=== PATIENT | male | born 1940 | race Caucasian/White ===

== ENCOUNTER 2017-09-07 07:21 | Observation (INO) ==
[2017-09-07] MEDS ORDERED: CeFAZolin Syr 2,000MG/20 ML 2,000 MG/20 ML SYRINGE IVPB ONE (07:39)
[2017-09-07] MEDS ORDERED: Lidocaine -MPF 1% 2 ML VIAL ID ONE (07:39)
[2017-09-07] MEDS: Ringers Solution, Lactated 1,000 ML IVC SCH ×2 (07:46→10:21)
--- NOTE | 2017-09-07 07:52 | Anesthesia Evaluation PreOp ---
Date of Encounter: 09/07/17 Time of Encounter: 07:50 - Past History Planned Operation: Robotic umbilical Hernia Repair Cardiac History: HTN, Hyperlipidemia, Cardiac Surgery (CABG 2004), Cardiac Stent (x 2 2002) Pulmonary History: Former smoker (> 10 years) Other Medical History: Hepatic (Hep B), Other (Skin CA) Anesthesia History: Past Anesthesia (Bilat Ing. Hernia, CABG 2004, Right THR,), Difficult Airway (1996 "said to have floppy Trachea", very sore throat after sx , no problems since 1996) Alcohol Use: heavy Drug use: none Medications and Allergies Aspirin Enteric Coated [Aspirin EC] 81 mg PO DAILY 09/15/16 [History] Metoprolol [Lopressor] 50 mg PO BID 09/15/16 [History] Multivit-Minerals/Folic Acid [Adult Multi Gummies] 1 tab PO DAILY 09/15/16 [ History] Simvastatin [Zocor] 40 mg PO HS 09/15/16 [History] Benazepril/Hydrochlorothiazide [Lotensin Hct 20-25 mg Tablet] 1 each PO DAILY [History] Cetirizine HCl [All Day Allergy] 10 mg PO DAILY 09/07/17 [History] Fluticasone Propionate Nasal [Flonase] 2 spray NS DAILY 09/07/17 [History] Pantoprazole Sodium [Protonix] 40 mg PO DAILY 09/07/17 [History] 3 Allergy/AdvReac Type Severity Reaction Status Date / Time Sulfa (Sulfonamide Allergy Rash Verified 09/07/17 07:56 Antibiotics) - Meds/Allergy Pre-op Review Medications Reviewed: Yes Allergies Reviewed: Yes Beta Blockers on Current Med List: Yes If Beta Blockers taken, Date/Time (Last Dose taken): 05:00 09/07/2017 Anesthesia Results - Labs Laboratory Tests 04/19/17 08/31/17 08/31/17 08:03 14:50 14:50 WBC 8.3 Hgb 14.0 Hct 40.2 Plt Count 143 Sodium 132 L Potassium 4.3 Chloride 98 Carbon Dioxide 25 BUN 10 Creatinine 0.99 - Imaging EKG: report reviewed (SINUS RHYTHM WITH FIRST DEGREE AV BLOCK) Anesthesia Exam O2 Sat Height 1.8 m Height 1.8 m Height 1.8 m Weight 90.265 kg Weight 90.265 kg Weight 90.265 kg O2 Sat by Pulse Oximetry 98 Vital Signs Temp Pulse Resp BP Pulse Ox 97.8 F 62 18 174/85 98 09/07/17 07:47 09/07/17 07:47 09/07/17 07:47 09/07/17 07:47 09/07/17 07:47 Height: 5'11'' Weight: 199# NPO (# of Hours): > 8 hrs Pain Scale: 0 Pain Scale Used: Numeric (1 - 10) - HEENT Pupil (Motor): Pupils equal, EOMI Mallampati: III Teeth: Normal Oral Opening: Greater than 3 - POWDER BLENDER AND POURER LOC: Oriented POWDER BLENDER AND POURER Motor: Normal RUE, Normal LUE, Normal RLE, Normal LLE, Normal Face POWDER BLENDER AND POURER Sensory: Normal: RUE, LUE, RLE, LLE, Face - Cardiac Rhythm: Regular Murmur: None JVD: No Carotid Bruit: No - Pulmonary Breath Sounds: bilateral Clear Respiratory Effort: Symmetrical Anesthesia Assess/Plan ASA Score: 3 Modified Karen Scale for Level of Consciousness: Cooperative, oriented, and tranquil Anesthetic Plan: General Autologous Blood: Yes Monitoring Plan: Standard Monitors Recovery Plan: PACU
[2017-09-07] MEDS ORDERED: *HR* Propofol 200 MG/20 ML VIAL IVP ONE ×2 (08:14→09:25)
[2017-09-07] MEDS ORDERED: Ondansetron 4 MG/2 ML VIAL ONE (08:14)
[2017-09-07] MEDS ORDERED: *HR* Succinylcholine 200 MG/10 ML VIAL IVP ONE (08:14)
[2017-09-07] MEDS ORDERED: Lidocaine -MPF 2% 2 ML VIAL ONE (08:14)
[2017-09-07] MEDS ORDERED: *HR* FentaNYL (PF) 100 MCG/2 ML VIAL ONE ×2 (08:14→09:44)
[2017-09-07] MEDS ORDERED: *HR* Labetalol 20 MG/4 ML SYRINGE IVP PRN (08:20)
[2017-09-07] MEDS ORDERED: *HR* HYDROmorphone (PF) 1 MG/ML SYRINGE IVP PRN (08:20)
[2017-09-07] MEDS ORDERED: *HR* Meperidine 25 MG/ML SYRINGE IVP PRN (08:20)
[2017-09-07] MEDS ORDERED: *HR* Promethazine 25 MG/ML VIAL IVP PRN ×2 (08:20→14:12)
--- NOTE | 2017-09-07 09:05 | History & Physical Report ---
Date of Encounter: 09/07/17 Time of Encounter: 09:04 24 Hour HP Update - Instructions Instructions: If the History and Physical is less than 30 days old and was completed prior to A.M. admission and or procedure and has NOT been updated on calendar day of procedure please complete this update prior to performing procedure. - Update Patient reports changes in Medical Condition: No Changes in examination, assessment, or condition: No Changes in Medication: No Preop tests/diagnostics Reviewed: Yes Surgery Remains Indicated: Yes Consent for Planned Operative Procedure(s) Verified: Yes - Pre-Operative Checklist Preoperative Checklist Indicated: Yes Prophylactic Antibiotic Ordered: Yes Home Medications Include Beta Steve: Yes Beta Steve Taken Today (Day of Surgery): Yes
[2017-09-07] MEDS ORDERED: EPHEDrine 50 MG/ML VIAL ONE (09:39)
[2017-09-07] MEDS ORDERED: Dexamethasone 4 MG/ML VIAL ONE (09:43)
[2017-09-07] MEDS ORDERED: *HR* Labetalol 100 MG/20 ML MDV ONE (10:19)
[2017-09-07] MEDS ORDERED: Acetaminophen IV 1,000 MG/100 ML INFUS..BTL ONE (10:19)
[2017-09-07] MEDS ORDERED: *HR* Morphine 10 MG/ML VIAL ONE (11:53)
--- NOTE | 2017-09-07 13:04 | Anesthesia Evaluation Post Op ---
Date of Encounter: 09/07/17 Time of Encounter: 13:03 - Vital Signs Vital Signs: Vital Signs/O2 Sat, Most Current Temp Pulse Resp BP Pulse Ox 97.4 F L 76 15 151/86 93 09/07/17 12:44 09/07/17 12:54 09/07/17 12:54 09/07/17 12:54 09/07/17 12:54 - Lungs Lungs: Clear Ascult./Percussion - Airway Airway: Non-obstructed - Cardiovascular Regular Rate - Mental Status Mental Status: Alert & Oriented, Answers Appropriately - Pain Pain Scale: 0 Pain Scale used: Numeric (1 - 10) - Nausea Vomiting Nausea Vomiting: Not Present - Hydration Hydration: Ice chips - Discharge PostOp Status: Transfer Patient to floor Attestation: I have assessed this patient and find they meet discharge criteria.
[2017-09-07] MEDS ORDERED: Ondansetron 4 MG/2 ML VIAL IVP PRN (14:12)
[2017-09-07] MEDS ORDERED: *HR* OxyCODONE/APAP 5/325 TABLET PO PRN (14:12)
[2017-09-07] MEDS ORDERED: cefOXitin 2,000 MG in D5% in Water (Mini-Bag+) 100 ML IVPB ONE (14:12)
[2017-09-07] MEDS ORDERED: Naloxone 0.4 MG/ML INJ IVP PRN (14:12)
[2017-09-07] MEDS ORDERED: 0.9 % Sodium Chloride 1,000 ML IVC SCH ×2 (14:15)
[2017-09-07] MEDS ORDERED: cefOXitin 2,000 MG in Water for inj. (sterile) 10 ML IVP ONE (14:19)
[2017-09-07] MEDS: Pantoprazole 40 MG VIAL IVP SCH (14:48)
[2017-09-07] MEDS ORDERED: cefOXitin 2,000 MG in D5% in Water (Mini-Bag+) 100 ML IVPB SCH (15:00)
[2017-09-07] MEDS: Ketorolac 15 MG/ML VIAL IVP SCH ×2 (17:37→23:22)
[2017-09-07] MEDS: cefOXitin 2,000 MG in Water for inj. (sterile) 10 ML IVP SCH (23:23)
[2017-09-08] MEDS: Ketorolac 15 MG/ML VIAL IVP SCH (06:05)
[2017-09-08] MEDS: cefOXitin 2,000 MG in Water for inj. (sterile) 10 ML IVP SCH (08:38)
[2017-09-08] MEDS: Pantoprazole 40 MG VIAL IVP SCH (08:39)
[2017-09-08] MEDS ORDERED: Aspirin Enteric Coated 81 MG Tablet PO SCH (09:00)
[2017-09-08 11:48] VITALS: BP 144/70
--- NOTE | 2017-09-08 11:59 | Discharge Summary ---
Date of Encounter: 09/08/17 Time of Encounter: 11:45 - Discharge Diagnosis (1) Umbilical hernia Priority: Primary Status: Resolved Qualifiers: Obstruction and gangrene presence: without obstruction or gangrene Qualified Code(s): K42.9 - Umbilical hernia without obstruction or gangrene (2) Colon injury Priority: Secondary Status: Resolved Qualifiers: Encounter type: subsequent encounter Qualified Code(s): S36.509D - Unspecified injury of unspecified part of colon, subsequent encounter - Discharge Medications Prescriptions: OxyCODONE/APAP 5/325 [Percocet 5/325 MG] 1 each PO Q4HR PRN #30 tablet PRN Reason: Pain Amoxicillin/Clavulanate [Augmentin] 875 mg PO BIDWM #20 tablet Docusate [Colace] 100 mg PO BID #30 capsule Home Medications: Aspirin Enteric Coated [Aspirin EC] 81 mg PO DAILY 09/15/16 [History] Metoprolol [Lopressor] 50 mg PO BID 09/15/16 [History] Multivit-Minerals/Folic Acid [Adult Multi Gummies] 1 tab PO DAILY 09/15/16 [ History] Simvastatin [Zocor] 40 mg PO HS 09/15/16 [History] Benazepril/Hydrochlorothiazide [Lotensin Hct 20-25 mg Tablet] 1 each PO DAILY [History] Cetirizine HCl [All Day Allergy] 10 mg PO DAILY 09/07/17 [History] Fluticasone Propionate Nasal [Flonase] 2 spray NS DAILY 09/07/17 [History] Pantoprazole Sodium [Protonix] 40 mg PO DAILY 09/07/17 [History] Amoxicillin/Clavulanate [Augmentin] 875 mg PO BIDWM #20 tablet 09/08/17 [Rx] Docusate [Colace] 100 mg PO BID #30 capsule 09/08/17 [Rx] OxyCODONE/APAP 5/325 [Percocet 5/325 MG] 1 each PO Q4HR PRN #30 tablet 09/08/17 [Rx] Allergies/Adverse Reactions: 3 Allergy/AdvReac Type Severity Reaction Status Date / Time Sulfa (Sulfonamide Allergy Rash Verified 09/07/17 07:56 Antibiotics) General Surgery Exam Initial Vital Signs Temp Pulse Resp BP Pulse Ox 97.8 F 62 18 174/85 98 09/07/17 07:47 09/07/17 07:47 09/07/17 07:47 09/07/17 07:47 09/07/17 07:47 - General physical appearance well developed, well nourished, no distress - Eyes normal ocular movement - ENT normal mucosa, atraumatic, normocephalic - Neck trachea midline - Respiratory normal respiratory effort, clear to auscultation - Cardiovascular Cardiovascular exam: Present: RRR - Abdomen Abdomen general surgery: Present: bowel sounds present, soft, tender (Expected postoperative tenderness) - Incision Incision: Present: clean and dry, intact - Integumentary Integumentary general surgery: Present: warm and dry, no abnormal pigmentation - Neurologic Present: CN 2-12 grossly intact - Psychiatric Psychiatric general surgery: Present: appropriate, oriented to person, oriented to place, oriented to time, speech is normal, memory intact Date of admission: 09/07/17 15:59 Primary care physician: Susan Garzon CNP Discharging clinician: Lisa Noble Anticipated date of discharge: 09/08/17 - Patient Status Disposition: Home, Self-Care Condition: Good Functional capacity at discharge: independent ambulation Overall status at discharge: patient is progressing back to baseline - Discharge Instructions Follow Up With: Susan Garzon CNP [Primary Care Provider] - Lisa Noble CNP [Advanced Practice Nurse] - 09/22/17 11:15 am (surgery follow-up) Additional Instructions: #1 may shower, no tub bath for 2 weeks #2 wash incisions with soap and water and pat dry daily #3 no lifting, pushing, pulling more than 15 pounds for the next 8 weeks #4 no driving until off narcotics for 24 hours and able to safely react in the car #5 may climb stairs #6 abdominal binder on while out of bed - Diet and Activity Activity: other (See additional instructions above) Diet: advance to your usual diet - Hospital Course Hospital course: Mr. Howard is a 77 year old male who has been seen and evaluated by Dr. Aponte for an umbilical hernia. He is postop day #1 from a robotic-assisted umbilical hernia repair. He did have a colonic trocar injury during surgery. The injury was repaired per Dr. Aponte without difficulty. The patient was then unable to have mesh placement and did undergo a primary repair of his umbilical hernia. On postoperative day #1, he is tolerating a regular diet without nausea or vomiting. His vital signs are stable he is afebrile. His postoperative pain is fairly well controlled. He is ambulating and voiding without difficulty. We will begin discharge planning to home and plan for outpatient follow-up in the next 7-10 days. The patient will be transitioned to oral antibiotics at discharge. - Time Spent with Patient Total time spent providing and/or coordinating discharge services: Less than 30 minutes
--- NOTE | 2017-09-09 22:51 | Operative Note ---
Date of procedure: 09/07/17 Pre-op diagnosis: Umbilical hernia Post-op diagnosis: other (Umbilical hernia and iatrogenic colon perforation) Procedure: Repair of iatrogenic colon perforation and primary umbilical herniorrhaphy Anesthesia: ALEJANDRINA Surgeon: Venkat Aponte Estimated blood loss (cc): 5 Condition: stable Disposition: same day Procedure in Detail: After informed consent the patient was taken to the operating room. After adequate sedation anesthesia and was prepped and draped. A 12 mm cannula was placed posterior axillary line flowable the umbilicus. However during placement of the cannula a iatrogenic colon perforation was created. Identified the perforation because when I removed the inner cannula and placed a camera in the 12 mm port identified diverticuli from inside the left colon. At this point I knew I had a bowel injury. The ports were left in place on the patient's right abdomen. Attempted to repair this robotically from the left however I was unable to develop enough excursion on the instrumentation. Therefore a set of incisions placed in the right abdomen. Once in place I attempted to close the area. This too was difficult due to the length across the abdomen in order to negotiate the repair. Individual 0 Ethibond sutures were placed in the umbilicus to close the hernia defect. Once completed I was then able to dissect down the left abdominal wall and identify the colon perforation. Individual 3-0 silk sutures are placed in the colon perforation. Once this completed this area was closed with an 0 Vicryl suture. The skin was closed with 4-0 Vicryl suture and Dermabond. He was taken recovery and later was to be admitted to the hospital for observation.
== END 2017-09-08 13:55 | disposition home or self-care (01) ==
LOC: 3ANU 07:21 → SAMDAY 07:21 → 3ANU 13:06
PROVIDERS: ADMIT Surgery; ATTEND Surgery